=== PATIENT | female | born 1990 | race Caucasian/White ===

== ENCOUNTER 2017-06-11 12:20 | Inpatient (IN) | payer MEDICAID, SELFPAY ==
--- NOTE | 2017-06-11 | PLAC_PTH ---
PATIENT: JODI MALAGON LOC: [facility] U#:[id number] AGE/SX: 26/F ROOM: WP008 RE06/11/[address]: Dr. Lora Verma MD : 1990 BED: 1 DIS: 06/13/2017 SPEC #: [id number] RECD: 06/11/17 22:39 STATUS: RONALD PHYLLIS #: [id number] NAZIA: 06/11/17 00:[address]: Lora Verma DEPT: SURGICAL PATHOLOGY RECD BY: Etienne Colvin ENTERED: 06/12/17 09:19 SP TYPE: PLACENTA OTHR DR: No Primary Care Phys Tissues: Placenta, NOS Procedures: Surgery Specimen Level V HEADER OPERATION: Vaginal delivery PRE-OP DIAGNOSIS: Velamentous insertion of umbilical cord TISSUE SUBMITTED: Placenta MICROSCOPIC DIAGNOSIS Smith placenta (580 gm): Umbilical cord ? trivascular with no inflammation. Placental membranes ? no pathologic change. Placental disc ? organizing intraparenchymal hemorrhage, intervillous congestion and mild Ce-Jose change. AM:rukhsana 06/13/17 MICROSCOPIC DESCRIPTION Slides are reviewed. GROSS DESCRIPTION SPECIMEN: PLACENTA / CLINICAL INFORMATION: A. Weight: 3.801 kg B. Gestational Age: 40 weeks C. Sex: Female PLACENTAL WEIGHT (POST FIXATION): 580 gm PLACENTAL DIMENSIONS: 19.5 x 17.5 x 3 cm PLACENTAL SHAPE: Usual ovoid PLACENTAL WEIGHT FOR GESTATIONAL AGE: Within 10-99th percentile MEMBRANES - Present A. Insertion: Marginal B. Site of rupture from edge: At edge of placental disc C. Color of membrane: Larry-ma D. Abnormalities: None UMBILICAL CORD - Present A. Color: Larry-ma B. Insertion: Eccentric C. Length: 49 cm D. Diameter: 1.3 cm E. Number of vessels: Three F. Abnormalities: None PLACENTAL DISC - Present A. Color of surface: Larry-ma B. surface abnormalities: None C. Maternal cotyledons: Intact with minimal tears D. Attached retro placental clot: No clot E. Cut surface: Dark red and spongy F. Lesions: Serial sections reveal a yellow-white plaque-like lesion present close to the surface measuring 3 x 1 x 0.7 cm G. Separate clot: Absent SECTIONS SUBMITTED: 1. Membrane roll and umbilical cord ( end notched) 2. Placental disc, and maternal surfaces, lesion 3. Placental disc, and maternal surfaces 4. Placental disc, and maternal surfaces AM:rukhsana 06/12/17 TC:5 CPT: 91535
[2017-06-11 00:05] VITALS: BP 132/61; PULSE 70; RESP 16; TEMP 36.7
[2017-06-11 13:04] VITALS: BMI 38.7
[2017-06-11] MEDS: Lactated Ringers 1,000 ML 50 ML IV ×3 (13:15→17:46)
--- NOTE | 2017-06-11 13:43 | NURSING ---
Unable to scn pt ID bracelet; POC BG 100; no action at this time.
[2017-06-11 13:51] LABS: Bedside Glucose 100 mg/dL (70-110)
[2017-06-11 13:53] LABS: Hematocrit 34.6 % (37-47); Hemoglobin 11.9 g/dl (12.0-15.0); Mean Corp Hgb Conc 34.4 g/gl (32-36); Mean Corpuscular Hgb 31.9 pg (27.0-32.0); Mean Corpuscular Volume 92.8 fL (81-99); Mean Platelet Vol. 11.5 fl (6.2-12.0); Platelet Count 149 K/mm3 (150-450); RBC Distribution Width CV 12.7 % (11.6-14.6); RBC Distribution Width SD 41.2 fl (35.1-43.9); Red Blood Count 3.73 M/mm3 (4.2-5.4); White Blood Count 7.9 K/mm3 (4.4-11.0)
[2017-06-11 13:54] LABS: Scan Indicated on CBC? Y/N NO
[2017-06-11 15:26] LABS: Bedside Glucose 77 mg/dL (70-110)
[2017-06-11] MEDS: Oxytocin 30 units/NS 500 ml 30 UNITS/500 ML IV.SOLN 334 UNITS IV (18:10)
[2017-06-11 18:31] LABS: Bedside Glucose 76 mg/dL (70-110)
[2017-06-11] MEDS: Oxytocin 30 units/NS 500 ml 30 UNITS/500 ML IV.SOLN 167 UNITS IV (18:40)
--- NOTE | 2017-06-11 19:03 | PCM.OB.VAG ---
Vaginal Delivery Maternal Presentation: Active Labor Presents at 40w5d ega in active labor. complicated by well controlled diet controlled gestational diabetes. Amniotic Membrane Rupture Type: Artificial Rupture of Membrane time: 1500 Amniotic Fluid Description: Clear Final DALE: 06/06/17 Final DALE Source: US <20 weeks Gestational age: 40 Weeks and 5 Days Date of Procedure: 06/11/17 Pre-Operative Diagnosis: labor Post-Operative Diagnosis: labor Surgery/ Procedure Performed: Spontaneous Vaginal Delivery Anesthesiologist: Eric Irene Type of Anesthesia: Epidural Description of Procedure: Presented at 5 cm dilated. She progressed to FD then pushed for a short time to deliver a live female with an active cry at delivery. The mouth and nares were suctioned at delivery. Delayed cord clamping was employed. Apgars were 8/9. The placenta delivered spontaneously intact with a velamentous cord insertion. The uterus contracted well. Inspection revealed an intact cervix, vagina, and perineum. Presentation: Vertex Placental Delivery Description: Spontaneous Placenta Disposition: [facility] Percentage of Placenta Abruption: 0 Cord Vessel Description: 3 Vessels Cord Entanglement: None Drain: Hyde to straight drain Estimated Blood Loss: 400cc A gender: Female (1 minute): 8 (5 minute): 9 Episiotomy Description: None Laceration: None Medications given after delivery: IV Pitocin Complications: None
--- NOTE | 2017-06-11 19:10 | DCINST_ITS ---
Discharge Diet: No Restrictions Discharge Activity: Return to Normal Activity, May Drive, May Shower Return to work on:: 08/11/17 May resume sexual activity in: 4-6 weeks Call your doctor if your incision/area has: Sudden Increased Bleeding, Increased Pain/ Swelling, Foul Smelling Discharge Call your doctor if you observe: Fever of 101 or Higher, Inability to urinate, Inability to have a bowel movement, Using more than one pad per hour, Shortness of breath, Chest pain, Calf discomfort, Uncontrolled pain Cleanse incision/area with: Soap & Water Additional Instructions: If you experience any of the following, contact your healthcare provider. * Bleeding that soaks a pad every hour for 2 hours * Fever 100.4 or higher * Unrelieved incision or abdominal pain * Swelling, redness, discharge or bleeding from your incision or episiotomy site * Your incision begins to separate * Problems urinating (including inability to urinate or burning while urinating) . * Visual changes * Severe headache * Flu-like symptoms * Pain or redness in one of both of your breasts * Pain, warmth, tenderness or swelling in your legs, especially the calf area * Frequent nausea and vomiting * Symptoms of depression or anxiety If you experience any of the following, call 911 or go to the nearest Emergency Room. * Chest pain * Problems breathing * Seizure activity * Partial or complete paralysis of a body part, slurred speech, weakness or drooping of the face, or a sudden inability to walk or hold your balance Allergies/Adverse Reactions: Allergies No Known Allergies Allergy (Verified 08/30/15 04:07) Medications to take at Discharge Cetirizine HCl [Zyrtec] 10 mg PO DAILY 08/30/15 Naproxen [Naprosyn] 250 - 500 mg PO Q8H PRN PRN #30 tablet 08/30/15 Vits [Prenatabs FA ] 1 tablet PO DAILY 08/30/15 Ibuprofen [Motrin] 800 mg PO TID PRN PRN #30 tab 06/11/17 The following prescriptions were given: Ibuprofen [Motrin] 800 mg PO TID PRN PRN #30 tab PRN Reason: pain or cramping Please Follow Up With: Lora Verma MD When: 6 weeks Primary Care Physician: Care Physician,No Primary [Primary Care Provider] - Proposed Discharge Date: 06/13/17
[2017-06-11] MEDS: Ibuprofen 600 MG Tablet PO (19:58)
[2017-06-12 04:24] VITALS: BP 115/70; PULSE 77; RESP 20; TEMP 36.8
[2017-06-12 05:12] LABS: Hematocrit 33.2 % (37-47); Hemoglobin 11.3 g/dl (12.0-15.0); Mean Corpuscular Hgb 31.6 pg (27.0-32.0); Mean Corpuscular Volume 92.7 fL (81-99); Platelet Count 138 K/mm3 (150-450); RBC Distribution Width CV 12.7 % (11.6-14.6); RBC Distribution Width SD 41.7 fl (35.1-43.9); Red Blood Count 3.58 M/mm3 (4.2-5.4); White Blood Count 9.2 K/mm3 (4.4-11.0)
[2017-06-12 05:21] LABS: Scan Indicated on CBC? Y/N NO
[2017-06-12] MEDS: Ibuprofen 600 MG Tablet PO ×3 (06:43→18:57)
--- NOTE | 2017-06-12 07:27 | PCM.PN.OB ---
Subjective: PPD#1 Doing well. Breast feeding and milk not in yet. Cramping more with nursing. Relates good delivery with minimal pushing Objective: Sitting up in bed holding sleeping baby. Nursing staff in giving bedside report - Physical Exam General: Alert, Oriented x3, Cooperative, No apparent distress HEENT: Atraumatic Neck: Supple Psych/Mental Status: Normal Affect Vital Signs Temp Pulse Resp BP 98.2 F 77 20 H 115/70 06/12/17 04:24 06/12/17 04:24 06/12/17 04:24 06/12/17 04:24 Weight: 102.512 kg Body Mass Index (BMI) 38.7 Intake and Output for Last 24 Hours 06/10/17 06/11/17 06/12/17 23:59 23:59 23:59 Output Total 800 / 800 600 / 600 Balance -800 / -800 -600 / -600 Laboratory Tests Past 24 Hrs 06/11/17 06/11/17 06/12/17 13:15 13:15 04:50 WBC 7.9 9.2 RBC 3.73 L 3.58 L Hgb 11.9 L 11.3 L Hct 34.6 L 33.2 L MCV 92.8 92.7 MCH 31.9 31.6 MCHC 34.4 34.0 RDW 12.7 12.7 RDW Differential 41.2 41.7 Plt Count 149 L 138 L MPV 11.5 11.0 Blood Type B POSITIVE Antibody Screen NEGATIVE POC Glucose 06/11/17 06/11/17 06/11/17 16:51 15:20 13:40 POC Glucose 76 77 100 Assessment/Plan PPD#1 Stable pp. Continue care.
[2017-06-12 08:12] VITALS: BP 109/48; PULSE 68; RESP 16; TEMP 36.8; O2SAT 98
[2017-06-12] MEDS: Prenatal Vits Tablet 1 TABLET PO (12:09)
[2017-06-12 12:11] VITALS: BP 116/54; PULSE 78; RESP 16; TEMP 36.6; O2SAT 97
[2017-06-12 16:15] VITALS: BP 122/65; PULSE 79; RESP 16; TEMP 36.9; O2SAT 98
[2017-06-12 19:55] VITALS: BP 116/60; PULSE 72; RESP 16; TEMP 36.3
[2017-06-13] MEDS: Ibuprofen 600 MG Tablet PO ×2 (01:23→10:59)
[2017-06-13 01:25] VITALS: BP 112/66; PULSE 82; RESP 16; TEMP 36.9
--- NOTE | 2017-06-13 08:15 | PCM.PN.OB ---
Subjective: PPD#2 Doing well. Pain control adequate. Nursing very well. No concerns voiced, and in good spirits. Reviewed s/sx of PP depression, and mastitis. States saw 7th grade social studies teacher yesterday re pp depression also. - Physical Exam General: Alert, Oriented x3, Cooperative, No apparent distress HEENT: Atraumatic Neck: Supple Abdomen: Soft - Fundus firm NT at 2 cm inferior to umbilicus Neurological: Cranial nerves II-XII grossly intact Psych/Mental Status: Normal Affect Vital Signs Temp Pulse Resp BP Pulse Ox 98.4 F 82 16 112/66 98 06/13/17 01:25 06/13/17 01:25 06/13/17 01:25 06/13/17 01:25 06/12/17 16:15 Oxygen Delivery Method Room Air Weight: 102.512 kg Body Mass Index (BMI) 38.7 Intake and Output for Last 24 Hours 06/11/17 06/12/17 06/13/17 23:59 23:59 23:59 Output Total 800 / 800 600 / 600 Balance -800 / -800 -600 / -600 Assessment/Plan PPD#2 Stable pp. Dischg home. RTO in 6 wk for pp check as scheduled, prn sooner.
--- NOTE | 2017-06-13 08:18 | PN.OBGYN_ITS ---
Subjective: PPD#2 Doing well. Pain control adequate. Nursing very well. No concerns voiced, and in good spirits. Reviewed s/sx of PP depression, and mastitis. States saw social media sr strategy manager yesterday re pp depression also. - Physical Exam General: Alert, Oriented x3, Cooperative, No apparent distress HEENT: Atraumatic Neck: Supple Abdomen: Soft - Fundus firm NT at 2 cm inferior to umbilicus Neurological: Cranial nerves II-XII grossly intact Psych/Mental Status: Normal Affect Vital Signs Temp Pulse Resp BP Pulse Ox 98.4 F 82 16 112/66 98 06/13/17 01:25 06/13/17 01:25 06/13/17 01:25 06/13/17 01:25 06/12/17 16:15 Oxygen Delivery Method Room Air Weight: 102.512 kg Body Mass Index (BMI) 38.7 Intake and Output for Last 24 Hours 06/11/17 06/12/17 06/13/17 23:59 23:59 23:59 Output Total 800 / 800 600 / 600 Balance -800 / -800 -600 / -600 Assessment/Plan PPD#2 Stable pp. Dischg home. RTO in 6 wk for pp check as scheduled, prn sooner.
[2017-06-13 08:39] VITALS: BP 110/71; PULSE 73; RESP 14; TEMP 36.9; O2SAT 98
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
[2017-06-13] MEDS: Prenatal Vits Tablet 1 TABLET PO (10:59)
[2017-06-13 14:15] VITALS: BP 129/76; PULSE 92; RESP 14; TEMP 36.8
[2017-06-13 14:57] LABS: Pathology Specimen OB SEE PATHOLOGY REPORT
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
== END 2017-06-13 15:30 | disposition home or self-care (01) | DRG 373 ==
PROVIDERS: Obstetrics & Gynecology; Admitting Provider Obstetrics & Gynecology; Visit Provider Obstetrics & Gynecology
DX: O24.420 Gestational diabetes mellitus in childbirth, diet controlled (principal); Z37.0 Single live birth; Z3A.40 40 weeks gestation of pregnancy; Z91.14 Patient's other noncompliance with medication regimen; Z87.891 Personal history of nicotine dependence
CPT/HCPCS: 59025; 59050; 82962; 85027; 86850; 86900; 88307; 99218; J7120; G0378